=== PATIENT | female | born 1985 | race African-American/Black ===

== ENCOUNTER → 2016-09-05 | Day surgery (SDC) | payer OTHER ==
[~2016-09-05] VITALS: Ht 152.4 cm; Wt 50.3 kg
--- NOTE | 2016-09-05 17:50 | Operative Report ---
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 A similar discussion with the patient today that any procedures performed on the nipple now or in the future could cause ischemia which means a loss of nipple sensation as well as the possibility of losing the skin. The visible scarring will resolve her many procedure and can cause additional keloid problems. No guarantees were given in regards to preservation of nipple sensation. The patient is very aware of this losing tissue in this area permanently. He shows an understanding of this that we proceeded with the remainder of the discussion. Once all questions are answered and she agreed to proceed with those risks discussed in detail informed consent was signed. She was taken to the appropriate supine table Venodyne boots were placed. Intravenous sedation was given and the right breast was prepped and draped in usual sterile fashion. Local anesthesia was injected around the periphery. He made developing 3 flaps laterally inferiorly and medially. The base. The inferior portion of the bipedicle flap containing the nipple tissue was de- epithelialized inferiorly it was debulked as much as possible preserving what would hope to be intercostal innervation from the depths. Ultimately bleeding was seen throughout the tissues of the flaps were then brought together with a very reasonable result by using the side flaps of the stalk those are made to create an areola R. Action was seen. Applied after nonabsorbable suture repair.
== END ==
LOC: STS 01:25
DX: L90.5 Scar conditions and fibrosis of skin (principal); N64.89 Other specified disorders of breast
CPT/HCPCS: 81025; 88305; J2250